=== PATIENT | female | born 1980 | race African-American/Black ===

== ENCOUNTER 2020-11-09 10:21 | Outpatient (CLI) | payer BC ==
--- NOTE | 2020-11-09 12:55 | RAD ---
Intravenous urogram: 11/09/2020 HISTORY: 40-year-old female N 20.1, ureteral calculus, left N 20.0, renal calculi I 87.8, phlebolith FINDINGS: Communications Strategist view demonstrates a 14 x 9 mm calculus at a right renal mid-lower pole calyx, and at a distance approximately 2 cm inferior to that, a 3 x 5 mm calculus at a right renal lower pole calyx. Cholecystectomy clips in right upper quadrant. Single surgical clip overlapping left iliac crest. Multiple bilateral small and tiny phleboliths. Bilateral nephrograms are symmetrical. There is symmetrical excretion into normal-appearing, nondilated bilateral renal collecting systems. The ureters are normal in course and caliber. On these images, there is no contrast in the distal ureters. Partial filling of the bladder. Adequate emptying of the bladder with small postvoid residual. IMPRESSION: 1. No obstructive uropathy. No hydronephrosis. 2. I 87.8, Large number of small and tiny bilateral phleboliths. This makes it difficult to identify any potentially existing tiny distal ureteral calculus. 3. N 20.0, nephrolithiasis consisting of 2 right-sided renal calculi, the larger of which is up to 14 mm.
== END 2020-11-09 10:22 | disposition home or self-care (01) ==
LOC: RAD 10:21
PROVIDERS: ATTEND Urology
DX: N20.2 Calculus of kidney with calculus of ureter (principal); I87.8 Other specified disorders of veins
CPT/HCPCS: 74410

== ENCOUNTER 2020-11-11 06:03 | Day surgery (SDC) | payer BC ==
[2020-11-10 11:27] VITALS: BMI 36.9
[2020-11-11 07:12] LABS: Bilirubin Negative (Negative); Blood, Urine 1+ (Negative); Clarity Clear (Clear); Glucose, Urine (Dipstick) Normal (Negative); Ketone, Urine Negative (Negative); Leukocyte 500 Leu/uL (Negative); Nitrite Negative (Negative); Protein, Urine (Dipstick) Negative (Neg-Trace); Specific Gravity, Urine 1.013 (1.002-1.036); Squamous Epithelial 0-3 HPF (0-3); Urobilinogen Normal mg/dL (Less than 2); WBC/HPF Greater than 50 HPF (0-3); pH, Urine 6.5 (5.0-9.0)
[2020-11-11 07:22] LABS: Bacteria/HPF 1+ HPF (None Seen)
[2020-11-11] MEDS ORDERED: Levofloxacin 500 mg/D5W 100 ml Premix Bag ONE (07:24)
[2020-11-11] MEDS ORDERED: cefTRIAXone\\ROCEPHIN 2 GM VIAL ONE (07:38)
[2020-11-11] MEDS ORDERED: Sodium Chloride 0.9% 100 ML ONE (07:38)
[2020-11-11] MEDS ORDERED: Iothalamate Meglumine 60% 50 ML VIAL FS ONE (08:35)
[2020-11-11] MEDS ORDERED: Fentanyl 100 MCG/2 ML VIAL ONE (08:36)
[2020-11-11] MEDS ORDERED: Midazolam HCl 2 mg/2 ml Vial ONE (08:36)
--- NOTE | 2020-11-11 08:46 | RAD ---
ONE VIEW ABDOMEN: HISTORY: Preoperative exam. Renal calculi. COMPARISON: 09/04/2020. FINDINGS: Nonspecific bowel gas pattern. There are cholecystectomy clips. Oval calcification projects over the right renal silhouette measuring 1.1 cm. Nonspecific calcifications projecting in the right hemipelvis. No osseous abnormality. IMPRESSION: Right renal calculus. POS: PPP
[2020-11-11] MEDS ORDERED: PHENYLEPHRINE-NS 100 MCG/ML 10 ML SYRINGE ONE (09:25)
[2020-11-11] MEDS ORDERED: Glycopyrrolate 0.2 MG/ML 5 ML SYRINGE ONE (09:25)
[2020-11-11] MEDS ORDERED: Ketorolac Tromethamine 30 MG/ML VIAL ONE (09:25)
[2020-11-11] MEDS ORDERED: Dexamethasone 20 MG/5 ML VIAL ONE (09:25)
[2020-11-11] MEDS ORDERED: Rocuronium Bromide 10 MG/ML (10ML VIAL) ONE (09:25)
[2020-11-11] MEDS ORDERED: Lidocaine 1% PF 5 ML VIAL ONE (09:25)
[2020-11-11] MEDS ORDERED: PROPOFOL 200 MG/20 ML VIAL ONE (09:25)
[2020-11-11] MEDS ORDERED: Ondansetron PF 4 MG/2 ML Vial ONE (09:25)
[2020-11-11] MEDS ORDERED: Phenylephrine 10 MG/ML VIAL ONE (10:04)
[2020-11-11] MEDS ORDERED: SUGAMMADEX SODIUM 200 MG/2 ML VIAL ONE (11:01)
--- NOTE | 2020-11-11 11:19 | RAD ---
EXAM: Retrograde IVP HISTORY: Kidney stones COMPARISON: KUB 11/11/[address] abdomen/pelvis 09/04/2020 FINDINGS/IMPRESSION: Limited intraoperative fluoroscopic views of the retrograde IVP were submitted f or interpretation. The initial image shows a calcification projecting over the right kidney. A wire and stent are initially placed in the left renal collecting system. Eventually, contrast was administ ered in the right renal collecting systems showing the calcifications to lie within a lower pole calyx in the right kidney. A lithotripsy device is placed and this calcification is disintegrated. Ev entually, a right-sided double-J ureteral stent is placed in good position.
[2020-11-11] MEDS ORDERED: Oxybutynin 5 MG TAB ONE (12:02)
[2020-11-11] MEDS ORDERED: Phenazopyridine HCl 100 MG TAB ONE (12:02)
--- NOTE | 2020-11-11 13:42 | OP ---
DATE OF PROCEDURE: 11/11/2020 PRIMARY CARE PHYSICIAN: Janet Middleton MD PREOPERATIVE DIAGNOSES: 1. A 40-year-old female with left flank pain with left ureteral calculi, right renal calculi. 2. Left 2-mm ureterovesical junction stone with hydronephrosis. 3. Right nonobstructing 1.4-cm renal pelvic stone, right lower pole 4 to 5 mm lower pole calculi with stone to skin distance 16 cm, Hounsfield unit over 1200. POSTOPERATIVE DIAGNOSES: 1. A 40-year-old female with left flank pain with left ureteral calculi, right renal calculi. 2. Left 2-mm ureterovesical junction stone with hydronephrosis. 3. Right nonobstructing 1.4-cm renal pelvic stone, right lower pole 4 to 5 mm lower pole calculi with stone to skin distance 16 cm, Hounsfield unit over 1200. 4. 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 PROCEDURES PERFORMED: Cystoscopy, bilateral retrograde pyelogram, bilateral balloon dilatation of the ureter, bilateral 4.8 x 28 double-J ureteral stent with distal tail in situ, left diagnostic ureteroscopy; right ureteroscopy, pyeloscopy, laser lithotripsy of large right renal pelvic stone, basket extraction of stone debris. Modifier 22 due to large stone, dense nature ANESTHESIA: General. COMPLICATIONS: None apparent. DISPOSITION: To recovery room in stable condition. SPECIMEN: Stone for chemical analysis. INTRAOPERATIVE FINDINGS: 1. Left diagnostic ureteroscopy demonstrates no persistent ureteral stone nidus of concern. Pyeloscopy demonstrates no migrated stone of concern. 2. Right large renal pelvic stone, very dense in nature, nonvisualization of the right lower pole stone seen on CT. Successful fragmentation of large right renal pelvic stone. INDICATIONS FOR PROCEDURE AND HISTORY: Ms. Prieto is a 40-year-old female, G6, P6, referred to me for left flank pain, which she characterizes 10/10 on the pain scale. She has been on Motrin for her pain and has persistent discomfort. Her CT scan demonstrated the imaging results as above, demonstrating a left ureteral UVJ stone and large right renal pelvic stone, right lower pole stone as above. She has multiple pelvic phleboliths in which KUB is suboptimal, evaluating persistent stone nidus, moreover a body habitus. She underwent IVP demonstrating no significant functional obstruction. However, in the morning of surgery, she complains of persistent left lower quadrant discomfort similar in fashion and therefore, she desires to proceed with ureteroscopy diagnostic and treatment of stone if still present. She did preop appropriately and her previous urine culture was treated. Repeat UA demonstrates 1+ bacteria and I informed her that it would be prudent to defer her surgery, however, there is also concern if she has a bacteria component with persistent stone nidus. We discussed risks and benefits of proceeding versus deferring surgery. With all questions encouraged and answered, she would like to proceed with surgical intervention today despite risks of infection, sepsis, morbidity, and mortality. I informed her that the options of observation is preferable, however, she desires/requests to proceed due to persistent discomfort. She has been provided broad-spectrum antibiotic therapy and desires to proceed. Declines observation, deferring surgery. Risks and complications of ureteroscopy reviewed as above, including, but not limited to, bleeding, pain, infection, sepsis, [id number] injury, possible secondary procedure, perioperative morbidity and mortality discussed with her in detail. DESCRIPTION OF PROCEDURE: After an informed consent was signed, the patient was taken to the operating room, placed in a dorsal lithotomy position with the genital area prepped and draped in the usual surgical sterile fashion. A 21-[place]ian cystoscope was utilized for cystoscopy, which demonstrated normal urethra. Upon entering the bladder, there was evidence of cystitis cystica changes of the trigone. There was no bladder tumor consistent with bladder tumor, or stone. The UOs were identified in normal anatomical location. The left UO was gently intubated and we gently performed a retrograde pyelogram. There was a possibility that there may be some resistance in the intramural ureter, therefore we did not do an aggressive retrograde pyelogram. A 0.035 Sensor wire was placed into the left upper pole and a balloon dilation of the UO was performed with a [employer] 4-cm 12-[place]ian balloon dilator, just dilating the UO in minimal into the antrum ureter to minimize migration of stone nidus at present. After successful balloon dilatation, I was able to pass the rigid ureteroscope without issues. I was able to see the area of the intramural ureter consistent with a prior stone, which demonstrated some edema of the intramural ureter. We did perform a diagnostic ureteroscopy with minimal pressure without hindering visualization. I did not see any further stone nidus of concern. To rule out the possibility of stone being migrated, we placed a 0.035 Super Stiff wire into the left upper pole and a flexible ureteroscope was advanced over the guidewire. The guidewire was then subsequently removed, and pyeloscopy demonstrated no obvious stone nidus in the ureter of the collecting system consistent with proximal migration. The ureter was without evidence of trauma. At this time with the working safety wire in place, a 4.8 x 28 double-J ureteral stent with distal tail in situ was placed into the left collecting system with ease. We then moved over to the contralateral side in which the right UO was intubated. A gentle retrograde pyelogram was performed demonstrating no evidence of hydronephrosis or filling defect and a 0.035 Sensor wire was placed into the right upper pole. Balloon dilatation of the intramural ureter was performed in a similar fashion to the contralateral side and subsequently, a 10-[place]ian dual-lumen access sheath was passed and a second working wire of 0.035 Super Stiff wire was placed into the right upper pole collecting system. Using 12/14-[place]ian navigator, this was gently passed to the level of the proximal ureter without issues. At this time, a flexible ureteroscope was advanced through the sheath and we surveyed the collecting system. Neither one of the collecting system demonstrated concerning for pyelonephritis incidentally. With the flexible ureteroscope, we were able to see the large renal pelvic stone in the renal pelvis. I surveyed the collecting system, which we surveyed to look for the right lower pole stone. I did not find any obvious evidence of the right lower pole stone as seen on CT. There was a possibility that this was parenchymal based versus anterior calyceal stone. However, surveying of the collecting system, I did not appreciate a second nidus stone in the lower pole consistent with CT. The large renal pelvic stone was easily visible and this was placed into the mid renal pelvis and using 273 micron laser fiber at 1.6 joules, we laser lithotripsied the stone. High-energy had to be utilized as the stone was very dense in nature, large, measuring 1.4 cm on KUB. We laser lithotripsied the stone in a dust-like stone debris. However, some fragments were large enough that warranted basket extraction. We obtained basket extraction of multiple stone debris and this was sent for chemical analysis. Pyeloscopy demonstrated most of the stone debris that remains was dust-like caliber, which she will most likely pass on her own. The ureter was surveyed demonstrating no obvious nidus of concern, no ureteral trauma. A 4.8 x 28 double-J ureteral stent with distal tail was placed into the right collecting system and the bladder was completely emptied. I will discharge her with broad-spectrum antibiotics, sent to the patient's pharmacy. She will follow up with me next for cystoscopy and bilateral stent pull. patient is to obtain a KUB one day prior to her stent removal. If there was no obvious stone nidus of concern along the course of the ureter, will proceed with bilateral stent pull. She is prompted to call me if fever chills myalgia. Monitored postop, with stable vital signs afebrile felt comfortable to be discharged Job ID: [id number] [facility]
[2020-11-19 14:38] LABS: CA Oxalate Monohydrate 100 % (.); Color Brown (.); Stone Weight 121 mg (.)
== END 2020-11-11 13:25 | disposition home or self-care (01) ==
LOC: SDC 06:03
PROVIDERS: ATTEND Urology
PROC: 0TC38ZZ Extirpation of Matter from Right Kidney Pelvis, Via Natural or Artificial Opening Endoscopic (ICD-10-PCS; principal; 2020-11-11)
PROC: 0T788DZ Dilation of Bilateral Ureters with Intraluminal Device, Via Natural or Artificial Opening Endoscopic (ICD-10-PCS; principal; 2020-11-11)
DX: N13.2 Hydronephrosis with renal and ureteral calculous obstruction (principal); R31.29 Other microscopic hematuria; I11.9 Hypertensive heart disease without heart failure; I87.8 Other specified disorders of veins; E66.9 Obesity, unspecified; Z68.36 Body mass index [BMI] 36.0-36.9, adult; Z79.899 Other long term (current) drug therapy; Z87.891 Personal history of nicotine dependence
CPT/HCPCS: 74018; 74420; 81001; 82365; 88300; 93005; 93010; J0696; J1100; J1885; J1956; J2250; J2370; J2405; J2704; J3010; J3490

== ENCOUNTER 2020-11-23 07:52 | Outpatient (CLI) | payer BC ==
--- NOTE | 2020-11-23 08:18 | RAD ---
XR Abdomen 1 View/KUB History: Renal calculi Comparison: Radiograph November 11, 2020 Findings: Interval in bilateral double-J ureteral stents. Small right inferior renal calculus measure s 3-4 mm. The dominant interpolar 12 mm ovoid calculus in the right renal collecting system is no longer appreciated. No definite renal calculi are seen projecting of the left renal shadow. Impression: The dominant right 11-12 mm ovoid renal calculus is no longer appreciated.
== END 2020-11-23 07:53 | disposition home or self-care (01) ==
LOC: RAD 07:52
PROVIDERS: ATTEND Urology
DX: N20.0 Calculus of kidney (principal)
CPT/HCPCS: 74018